=== PATIENT | female | born 1955 | race Caucasian/White ===

== ENCOUNTER → 2017-09-10 | Day surgery (SDC) | payer BC ==
[2017-09-04 13:21] VITALS: BMI 31.0
[~2017-09-10] VITALS: Ht 154.9 cm; Wt 75.0 kg
[~2017-09-10] MED LIST: FENTANYL CITRATE INJ 50 MCG/1 ML 2 ML VIAL ONE; LIDOCAINE HCL 2% 2 ML VIAL (20MG/ML) ONE; LOSA1TAB PO; MIDAZOLAM HCL 1 MG/ML 2ML VIAL ONE; PROPOFOL IV EMULSION 10 MG/ML 20 ML VIAL IV ONE; SODIUM CHLORIDE 0.9% 500ML 500 ML IV ONE
[2017-09-10 08:23] VITALS: Ht 154.9 cm; Wt 75.0 kg
[2017-09-10 08:37] VITALS: TEMP 36.4
--- NOTE | 2017-09-10 09:00 | Endo History and Physical ---
History & Physical Date of Service: Sep 10, 2017. Chief Complaint: Screening colonoscopy Referring Physician: DR. LYDIA FRANKLIN History of Present Illness Screening colonoscopy. Past Medical History Reflux, Hypertension Past Surgical History Hx Cardiac Surgery: No Hx Internal Defibrillator: No Hx Pacemaker: No Hx Abdominal Surgery: Yes (OVARIAN CYSTS REMOVED, LAPAROSCOPY) Hx of Implantable Prosthesis: No Hx Post-Op Nausea and Vomiting: No Hx Cancer Surgery: No Hx Thoracic Surgery: No Hx Orthopedic: No Hx Urinary Tract Surgery: No Family History None Social History Smoking Status: Never Smoker Hx Substance Use: No Hx Alcohol Use: Yes (4 GLASSES OF WINE WEEKLY) Allergies Coded Allergies: Nitrofurantoin (Verified Adverse Reaction, Unknown, ALL OVER BODY ACHES, ) Current Medications Reported Home Medications Medications Dose Route/Sig Max Daily Dose Days Date Category Cozaar (Losartan Potassium) 25 Mg Tab 25 Mg PO QAM 09/04/17 Reported Vital Signs Weight (Kilograms): 75.00 Height (Feet): 5 Height (Inches): 1 Date Time Temp Pulse Resp B/P (MAP) Pulse Ox O2 Delivery O2 Flow Rate FiO2 09/10/17 08:37 36.4 78 18 154/84 (107) 99 Room Air Physical Exam General Appearance: WD/WN, no apparent distress Respiratory/Chest: Auscultation: breath sounds normal, no wheezing Cardiovascular: Heart Auscultation: RRR, no murmurs Abdomen: Inspection & Palpation: soft, no tenderness, guarding & rebound Assessment and Plan Colonoscopy today.
--- NOTE | 2017-09-10 09:30 | GI REPORT ---
Procedure Date: 09/10/2017 9:00 AM Procedure: Colonoscopy Indications: Screening for colorectal malignant neoplasm Medicines: Propofol per Anesthesia Complications: No immediate complications. Estimated blood loss: None. Estimated Blood Loss: Estimated blood loss: none. Procedure: Pre-Anesthesia Assessment: - Prior to the procedure, a History and Physical was performed, and patient medications, allergies and sensitivities were reviewed. The patient's tolerance of previous anesthesia was reviewed. - ASA Grade Assessment: III - A patient with severe systemic disease. After I obtained informed consent, the scope was passed under direct vision. Throughout the procedure, the patient's blood pressure, pulse, and oxygen saturations were monitored continuously. The scope was introduced through the anus and advanced to the terminal ileum, with identification of the appendiceal orifice and IC valve. The colonoscopy was performed with ease. The patient tolerated the procedure well. The quality of the bowel preparation was excellent. The bowel preparation used was split dose MIralax. Findings: Internal hemorrhoids were found during retroflexion. The hemorrhoids were small. Impression: - Internal hemorrhoids. - No specimens collected. - The colon was otherwise normal to the terminal ileum with retroflexed views of the ascending colon and rectum. Recommendation: - Repeat colonoscopy in 10 years for screening purposes. Oneil Garcia M.D. Oneil Garcia MD 09/10/2017 9:30:25 AM This report has been signed electronically. Note Initiated On: 09/10/2017 9:00 AM I attest to the content of the Intraoperative Record and orders documented therein, exceptions below
--- NOTE | 2017-09-10 09:34 | Discharge Instructions ---
Endoscopy Patient Instructions Date / Procedure(s) Performed Sep 10, 2017. Colonoscopy Allergy Information Coded Allergies: Nitrofurantoin (Verified Adverse Reaction, Unknown, ALL OVER BODY ACHES, ) Discharge Date / Findings Sep 10, 2017. Internal Hemorrhoids Medication Instructions Restart Stopped Medication(s): Restart all medications today. Provider Instructions Activity Restrictions - No exercising or heavy lifting for 24 hours. - Do not drink alcohol the day of the procedure. - Do not drive a car or operate machinery until the day after the procedure. - Do not make any important decisions or sign important papers in 24 hours after the procedure. Following Day: - Return to full activity which may include returning to work/school. Diet Start your diet with liquids and light foods (jello, soup, juice, toast). Then eat your usual diet if not nauseated. Treatment For Common After Affects For mild abdominal pain, bloating, or excessive gas: - Rest - Eat lightly - Lie on right side Repeat colonoscopy in ten years. Follow-Up Information Follow-up with DR. LYDIA FRANKLIN as scheduled Anesthesia Information What You Should Know You have had a procedure that required some medicine to reduce anxiety and discomfort. This treatment is called moderate sedation. After receiving the treatment, you may be sleepy, but you will be able to breathe on your own. The effects of the treatment may last for several hours. Follow these instructions along with Activity/Diet recommendations noted above: * Do NOT do anything where dizziness or clumsiness would be dangerous. * Rest quietly at home today, then you can be up and about tomorrow. * Have a responsible person stay with you the rest of today. * You may have had an I.V. today. If so, you may take the dressing off later today. Recommendations Call your doctor if: * Trouble breathing * Continuous vomiting for more than 24 hours * Temperature above 101 degrees * Severe abdominal pain or bloating * Pain not relieved by pain medicine ordered * There is increased drainage or redness from any incision * A large amount of rectal bleeding greater than 2-3 tablespoons. (If you had a polyp/s removed or have hemorrhoids, a small amount of blood - from the rectum is to be expected.) * You have any unanswered questions or concerns. IN THE EVENT OF A SERIOUS EMERGENCY, GO TO THE NEAREST EMERGENCY ROOM Your discharge instructions were prepared by provider Oneil Garcia. Patient Instructions Signature Page Yady Mazariegos Patient (or Guardian) Signature/Date: I have read and understand the instructions given to me by my caregivers. Caregiver/RN/Doctor Signature/Date: The above-named patient and/or guardian has received patient instructions on this date. + Original Patient Signature Page (only) stays with chart. Please make copy for patient.
[2017-09-10 09:57] VITALS: BP 140/83; PULSE 62; O2SAT 99
--- NOTE | 2017-09-10 11:03 | Anesthesiology Progress Note ---
Anesthesia Post Op Note Date & Time Sep 10, 2017 at 11:03 Vital Signs Pain Intensity: 0 Vital Signs Past 12 Hours Date Time Temp Pulse Resp B/P (MAP) Pulse Ox O2 Delivery O2 Flow Rate FiO2 09/10/17 09:57 62 18 140/83 (102) 99 Room Air 09/10/17 09:42 75 18 120/77 (91) 98 Room Air 09/10/17 09:27 70 18 129/87 (101) 99 Room Air 09/10/17 08:37 36.4 78 18 154/84 (107) 99 Room Air Notes Mental Status: alert / awake / arousable, participated in evaluation Pt Amnestic to Procedure: Yes Nausea / Vomiting: adequately controlled Pain: adequately controlled Airway Patency, RR, SpO2: stable & adequate BP & HR: stable & adequate Hydration State: stable & adequate Anesthetic Complications: no major complications apparent
== END | disposition home or self-care (01) ==
LOC: C.GI 07:55
PROVIDERS: ATTEND Internal Medicine Gastroenterology
DX: Z12.11 Encounter for screening for malignant neoplasm of colon (principal); K64.8 Other hemorrhoids; N18.9 Chronic kidney disease, unspecified; I12.9 Hypertensive chronic kidney disease with stage 1 through stage 4 chronic kidney disease, or unspecified chronic kidney disease; Z98.890 Other specified postprocedural states; Z90.89 Acquired absence of other organs